=== PATIENT | female | born 1985 | race Two or more races ===

== ENCOUNTER 2017-07-16 09:26 | Emergency (ER) | payer OTHER ==
[~2017-07-16] VITALS: Ht 160 cm; Wt 115.7 kg
--- OUTSIDE RECORDS SUMMARY | 2017-07-16 09:29 | XMS REPORT ---
Author Author [facility] Address Unknown Phone Unavailable Care Team Providers Care Powder Coater Name Role Phone CAILIN MATTHEW Unavailable Unavailable Problems This patient has no known problems. Allergies, Adverse Reactions, Alerts This patient has no known allergies or adverse reactions. Medications This patient has no known medications. Results Test Description Test Time Test Comments Text Results Atomic Results Result Comments CT ABDOMEN/PELVIS [place] [address] Patient Name: SCHUYLER WERNER MR #: [id number] : 1985 Age/Sex: 31/F Req #: [id number] Adm Physician: Ordered by: MATTHEW SIMEON DO Report #: [id number] Location: CT Room/Bed: Procedure: [id number] CT/CT ABDOMEN/PELVIS W Exam Date: 12/31/16 Exam Time: 1905 REPORT STATUS: Signed EXAMINATION: CT of the abdomen and pelvis with contrast. TECHNIQUE: Helical CT images of the abdomen and pelvis were performed from the lung bases to the lesser trochanters after the intravenous administration of 100 cc of Isovue 300 and the oral administration of none. Coronal and sagittal reformatted images were obtained. COMPARISON: None. CLINICAL HISTORY:Abdominal pain DISCUSSION: ABDOMEN/PELVIS: LOWER THORAX:Unremarkable. HEPATOBILIARY: No focal hepatic lesions. No intra-or extrahepatic biliary ductal dilation. The gallbladder is normal. SPLEEN: No splenomegaly. PANCREAS: No focal masses or ductal dilatation. ADRENALS: No adrenal nodules. KIDNEYS/URETERS: No soft tissue mass. No hydronephrosis. PELVIC ORGANS/BLADDER: The bladder is normal. PERITONEUM/RETROPERITONEUM : No free air or fluid. LYMPH NODES: No intra-abdominal, retroperitoneal, pelvic or inguinal lymphadenopathy. VESSELS: Unremarkable. GI TRACT : No distention or wall thickening. BONES AND SOFT TISSUE: No bony destructive lesions. Soft tissue stranding in the left lower quadrant abdominal fat. IMPRESSION: Edema/cellulitis within the left lower quadrant abdominal fat. No abscess. Signed by: Dr. Gael Cloud M.D. on 12/31/2016 7:41 PM Dictated By: GAEL CLOUD MD 40 Transcribed By: DA on 1940 COPY TO: MATTHEW SIMEON DO
--- NOTE | 2017-07-16 10:17 | Diagnostic Imaging Report ---
Exam: Head CT without contrast History: Right-sided facial numbness, rule out bleeding mass, etc. Comparison studies: None Technique: Axial images were obtained from the skull base to the vertex. Coronal and sagittal images reconstructed from the axial data. Intravenous contrast: None Findings: Scalp: No abnormalities. Bones: No fractures, blastic or lytic lesions. Brain sulci: Appropriate for age. Ventricles: Normal in size and configuration. No hydrocephalus. Extra-axial spaces: Incidental scattered dural ossifications without significant mass affect. Largest ossification along the left paramedian falx measures up to 2.7 cm. No mass or fluid collection. Parenchyma: No abnormal densities. No masses, acute hemorrhage, acute or chronic vascular insults. Sellar/suprasellar region: No abnormalities. Craniocervical junction: Patent foramen magnum. No Chiari one malformation. IMPRESSION: 1. No acute abnormalities. 2. Specifically, no mass, acute hemorrhage or acute cortical vascular insults. Signed by: Dr. Charly Velasquez M.D. on 07/16/2017 10:14 AM
[2017-07-16 11:06] VITALS: BP 125/92
== END 2017-07-16 11:16 | disposition home or self-care (01) ==
LOC: ER 09:26
DX: G51.0 Bell's palsy (principal)
CPT/HCPCS: 70450; 99283

== ENCOUNTER 2019-09-27 21:26 | Emergency (ER) | payer OTHER ==
[~2019-09-27] VITALS: Ht 160 cm; Wt 115.7 kg
[2019-09-27 22:28] LABS: BASOPHILS % 0.3 % (0.0-1.0); EOSINOPHILS # (AUTO) 0.2 (0.0-0.4); EOSINOPHILS % 1.7 % (0.0-6.0); HEMATOCRIT 40.3 % (34.2-44.1); HEMOGLOBIN 12.3 g/dL (12.0-16.0); LYMPHOCYTES # (AUTO) 2.7 (1.0-3.2); LYMPHOCYTES % 22.6 % (18.0-39.1); MEAN CORPUSCULAR HEMOGLOBIN 24.4 pg (28-32); MEAN CORPUSCULAR HGB CONC 30.5 g/dL (31-35); MONOCYTES # (AUTO) 0.7 (0.2-0.8); MONOCYTES % 5.6 % (4.4-11.3); NEUTROPHILS # (AUTO) 8.2 (2.1-6.9); NEUTROPHILS % 69.4 % (38.7-80.0); PLATELET COUNT 369 x10e3/uL (140-360); RED BLOOD COUNT 5.04 x10e6/uL (3.6-5.1); RED CELL DISTRIBUTION WIDTH 15.8 % (11.7-14.4)
[2019-09-27 22:48] LABS: ALANINE AMINOTRANSFERASE 15 IU/L (0-55); ALBUMIN 4.2 g/dL (3.5-5.0); ALBUMIN/GLOBULIN RATIO 0.9 (0.8-2.0); ALKALINE PHOSPHATASE 93 IU/L (40-150); ANION GAP 14.9 mmol/L (8-16); BLOOD UREA NITROGEN 14 mg/dL (7-26); BUN/CREATININE RATIO 17 (6-25); CARBON DIOXIDE 32 mmol/L (22-29); CHLORIDE 95 mmol/L (98-107); CREATINE KINASE 170 IU/L (29-168); CREATININE, SERUM 0.84 mg/dL (0.57-1.11); EST GLOMERULAR FILTRATION RATE > 60 ML/MIN (60-); GLUCOSE 88 mg/dL (74-118); POTASSIUM 3.9 mmol/L (3.5-5.1); SODIUM 138 mmol/L (136-145)
--- NOTE | 2019-09-27 23:13 | Diagnostic Imaging Report ---
EXAMINATION: Head CT without contrast. HISTORY:Right-sided weakness. COMPARISON:CT head from 07/16/2017. TECHNIQUE: Multidetector axial images were obtained from the foramen magnum to the vertex without contrast. The images were reconstructed using brain and bone algorithms. Thin section brain images were reformatted into coronal and sagittal planes. Dose modulation, iterative reconstruction, and/or weight based adjustment of the mA/kV was utilized to reduce the radiation dose to as low as reasonably achievable. Intravenous contrast: None IMAGE QUALITY: Acceptable. FINDINGS: Skull/scalp: No lytic or blastic. lesions. No surgical changes. Parenchyma: No abnormal density. No acute hemorrhage, mass or acute major vascular territorial infarct. Arteries: No density suggestive of thrombosis. Dural sinuses: No abnormal density suggestive of thrombosis. Ventricles: No hydrocephalus or displacement. Extra-axial spaces: Unchanged dural based calcification/ossification, the largest along the left paramedian falx measures up to 2.9 cm. No mass or fluid collection. Brain volume: Normal for age. Craniocervical junction: No mass, Chiari malformation, or basilar invagination. Sella: No mass. Paranasal/mastoid sinuses: Imaged portions unremarkable. IMPRESSION: No acute intracranial abnormality. No change since CT head from 07/16/2017. Signed by: Dr. Helen Bustillos M.D. on 09/27/2019 11:09 PM
[2019-09-28] MEDS ORDERED: ACETAMINOPHEN 325 MG TAB PO ONE
--- NOTE | 2019-09-28 00:12 | Emergency Department Note ---
History of Present Illnes History of Present Illness Chief Complaint: Neurological History of Present Illness This is a 34 year old Other female PRESENTS WITH C/O RIGHT SIDE HEADACHE RADIATING TO RIGHT NECK AND THEN BECAME WEAK ALL OVER, HAS H/O MIGRAINE HEADACHES, NO SYMPTOMS AT THIS TIME EXCEPT FOR MILD HEADACHE. Arrival Mode: Car Onset (how long ago): hour(s) (1) Location: RIGHT HEAD Quality: HEADACHE Radiation: Reports neck Severity: moderate Onset quality: sudden Duration (how long): hour(s) (1) Timing of current episode: constant Progression: partially resolved Context: Denies recent illness, Denies recent surgery Relieving factors: none Exacerbating factors: none Associated symptoms: Reports denies other symptoms Past Medical/Family History Physician Review I have reviewed the patient's past medical and family history. Any updates have been documented here. Past Medical History Recent Fever: No Clinical Suspicion of Infectio: No New/Unexplained Change in Ment: No Past Medical History: None Other Medical History: BELLS PALSY, MIGRAINE HEADACHES Past Surgical History: None Social History Smoking Cessation: Never Smoker Alcohol Use: None Any Illegal Drug Use: No Other Last Tetanus: unknown Review of Systems Review of Systems Constitutional: Reports no symptoms EENTM: Reports no symptoms Cardiovascular: Reports no symptoms Respiratory: Reports no symptoms Gastrointestinal: Reports no symptoms Genitourinary: Reports no symptoms Musculoskeletal: Reports no symptoms Integumentary: Reports no symptoms Neurological: Reports as per HPI Psychological: Reports no symptoms Endocrine: Reports no symptoms Hematological/Lymphatic: Reports no symptoms Physical Exam Related Data Allergies: Coded Allergies: No Known Allergies (Unverified , 07/16/17) Triage Vital Signs Vital Signs Date Time Temp Pulse Resp B/P (MAP) Pulse Ox O2 Delivery O2 Flow Rate FiO2 09/27/19 21:53 98.4 72 18 147/98 99 Vital signs reviewed: Yes Physical Exam CONSTITUTIONAL Constitutional: Present well-developed, Present well-nourished HENT HENT: Present normocephalic, Present atraumatic, Present oropharynx clear/moist, Present nose normal HENT L/R: Present left ext ear normal, Present right ext ear normal EYES Eyes: Reports PERRL, Reports conjunctivae normal NECK Neck: Present ROM normal PULMONARY Pulmonary: Present effort normal, Present breath sounds normal CARDIOVASCULAR Cardiovascular: Present regular rhythm, Present heart sounds normal, Present capillary refill normal, Present normal rate GASTROINTESTINAL Abdominal: Present soft, Present nontender, Present bowel sounds normal GENITOURINARY Genitourinary: Present exam deferred SKIN Skin: Present warm, Present dry MUSCULOSKELETAL Musculoskeletal: Present ROM normal NEUROLOGICAL Neurological: Present alert, Present oriented x 3, Present no gross motor or sensory deficits, Present other (NEURO EXAM NON FOCAL) PSYCHOLOGICAL Psychological: Present mood/affect normal, Present judgement normal Results Laboratory Result Diagram: 09/27/19220909/27/192209 Laboratory Laboratory Tests Test 09/27/19 22:10 White Blood Count 11.84 x10e3/uL (4.8-10.8) Red Blood Count 5.04 x10e6/uL (3.6-5.1) Hemoglobin 12.3 g/dL (12.0-16.0) Hematocrit 40.3 % (34.2-44.1) Mean Corpuscular Volume 80.0 fL (81-99) Mean Corpuscular Hemoglobin 24.4 pg (28-32) Mean Corpuscular Hemoglobin Concent 30.5 g/dL (31-35) Red Cell Distribution Width 15.8 % (11.7-14.4) Platelet Count 369 x10e3/uL (140-360) Neutrophils (%) (Auto) 69.4 % (38.7-80.0) Lymphocytes (%) (Auto) 22.6 % (18.0-39.1) Monocytes (%) (Auto) 5.6 % (4.4-11.3) Eosinophils (%) (Auto) 1.7 % (0.0-6.0) Basophils (%) (Auto) 0.3 % (0.0-1.0) Neutrophils # (Auto) 8.2 (2.1-6.9) Lymphocytes # (Auto) 2.7 (1.0-3.2) Monocytes # (Auto) 0.7 (0.2-0.8) Eosinophils # (Auto) 0.2 (0.0-0.4) Basophils # (Auto) 0.0 (0.0-0.1) Absolute Immature Granulocyte (auto 0.05 x10e3/uL (0-0.1) Sodium Level 138 mmol/L (136-145) Potassium Level 3.9 mmol/L (3.5-5.1) Chloride Level 95 mmol/L (98-107) Carbon Dioxide Level 32 mmol/L (22-29) Anion Gap 14.9 mmol/L (8-16) Blood Urea Nitrogen 14 mg/dL (7-26) Creatinine 0.84 mg/dL (0.57-1.11) Estimat Glomerular Filtration Rate > 60 ML/MIN (60-) BUN/Creatinine Ratio 17 (6-25) Glucose Level 88 mg/dL (74-118) Calcium Level 11.0 mg/dL (8.4-10.2) Total Bilirubin 0.5 mg/dL (0.2-1.2) Aspartate Amino Transf (AST/SGOT) 18 IU/L (5-34) Alanine Aminotransferase (ALT/SGPT) 15 IU/L (0-55) Alkaline Phosphatase 93 IU/L (40-150) Creatine Kinase 170 IU/L (29-168) Creatine Kinase MB 1.10 ng/mL (0-5.0) Troponin I 0.124 ng/mL (0-0.300) Total Protein 9.1 g/dL (6.5-8.1) Albumin 4.2 g/dL (3.5-5.0) Globulin 4.9 g/dL (2.3-3.5) Albumin/Globulin Ratio 0.9 (0.8-2.0) Lab results reviewed: Yes Imaging Imaging results reviewed: Yes Impressions rocedure: [id number] CT/CT BRAIN WO Exam Date: Exam Time: REPORT STATUS: Signed EXAMINATION: Head CT without contrast. HISTORY:Right-sided weakness. COMPARISON:CT head from 07/16/2017. TECHNIQUE: Multidetector axial images were obtained from the foramen magnum to the vertex without contrast. The images were reconstructed using brain and bone algorithms. Thin section brain images were reformatted into coronal and sagittal planes. Dose modulation, iterative reconstruction, and/or weight based adjustment of the mA/kV was utilized to reduce the radiation dose to as low as reasonably achievable. Intravenous contrast: None IMAGE QUALITY: Acceptable. FINDINGS: Skull/scalp: No lytic or blastic. lesions. No surgical changes. Parenchyma: No abnormal density. No acute hemorrhage, mass or acute major vascular territorial infarct. Arteries: No density suggestive of thrombosis. Dural sinuses: No abnormal density suggestive of thrombosis. Ventricles: No hydrocephalus or displacement. Extra-axial spaces: Unchanged dural based calcification/ossification, the largest along the left paramedian falx measures up to 2.9 cm. No mass or fluid collection. Brain volume: Normal for age. Craniocervical junction: No mass, Chiari malformation, or basilar invagination. Sella: No mass. Paranasal/mastoid sinuses: Imaged portions unremarkable. IMPRESSION: No acute intracranial abnormality. No change since CT head from 07/16/2017. Signed by: Dr. Helen Ash M.D. on 09/27/2019 11:09 PM Dictated By: HELEN ASH MD 08 Transcribed By: DA on 09/27/192308 COPY TO: JEN LUKE MD~ Procedures 12 Lead ECG Interpretation ECG Interpretation : ECG: ECG 1 Change Management Director: Interpreted by ED physician Date: Sep 28, 2019 Time: 22:02 Rhythm: sinus rhythm Rate: normal BPM: 60 QRS axis: normal ST segments normal: Yes T waves normal: Yes Other findings: LVH Clinical Impression: non-specific ECG Assessment & Plan Medical Decision Making MDM PT WITH SUDDEN HEADACHE RADIATING DOWN RIGHT NECK AND WEAKNESS ALL OVER CBC, CMP, EKG, CARDIAC ENZYMES, CT BRAIN , ORDERED TO EVAL FOR ELECTROLYTE ABNORMALITY, MYOCARDIAL INFARCTION, INTRACRANIAL ABNORMALITY, Assessment & Plan Final Impression: (1) Head ache (2) Migraine Depart Disposition: HOME, SELF-CARE Last Vital Signs Date Time Temp Pulse Resp B/P (MAP) Pulse Ox O2 Delivery O2 Flow Rate FiO2 09/27/19 21:53 98.4 72 18 147/98 99 Medications in the ED Acetaminophen 650 mg ONCE ONCE PO Last administered on 09/27/19at 23:58; Admin Dose 650 MG; Start 09/28/19 at 00:00; Stop 09/28/19 at 00:02; Status DC JEN LUKE MD Sep 28, 2019 00:12
== END 2019-09-28 00:36 | disposition home or self-care (01) ==
LOC: ER 21:26
DX: G43.909 Migraine, unspecified, not intractable, without status migrainosus (principal)
CPT/HCPCS: 36415; 70450; 80053; 82550; 82553; 84484; 85025; 93005; 99283

== ENCOUNTER 2020-06-20 02:22 | Emergency (ER) | payer OTHER ==
[~2020-06-20] VITALS: Ht 160 cm; Wt 115.7 kg
[2020-06-20 02:52] LABS: BASOPHILS # (AUTO) 0.1 (0.0-0.1); BASOPHILS % 0.4 % (0.0-1.0); EOSINOPHILS # (AUTO) 0.5 (0.0-0.4); EOSINOPHILS % 4.6 % (0.0-6.0); HEMATOCRIT 35.7 % (34.2-44.1); HEMOGLOBIN 11.4 g/dL (12.0-16.0); LYMPHOCYTES # (AUTO) 3.2 (1.0-3.2); LYMPHOCYTES % 27.8 % (18.0-39.1); MEAN CORPUSCULAR HEMOGLOBIN 25.4 pg (28-32); MEAN CORPUSCULAR HGB CONC 31.9 g/dL (31-35); MEAN CORPUSCULAR VOLUME 79.7 fL (81-99); MONOCYTES # (AUTO) 0.6 (0.2-0.8); MONOCYTES % 4.8 % (4.4-11.3); NEUTROPHILS # (AUTO) 7.2 (2.1-6.9); NEUTROPHILS % 62.1 % (38.7-80.0); PLATELET COUNT 322 x10e3/uL (140-360); RED BLOOD COUNT 4.48 x10e6/uL (3.6-5.1); RED CELL DISTRIBUTION WIDTH 15.9 % (11.7-14.4)
[2020-06-20 03:53] LABS: CLARITY,URINE CLEAR (CLEAR); COLOR,URINE YELLOW (YELLOW); KETONES,URINE NEGATIVE (NEGATIVE); LEUKOCYTE ESTERASE ,URINE NEGATIVE (NEGATIVE); NITRITE,URINE NEGATIVE (NEGATIVE); PROTEIN,URINE DIPSTICK NEGATIVE (NEGATIVE); URINE UROBILINOGEN 0.2 mg/dL (0.2 - 1)
[2020-06-20 03:59] LABS: BACTERIA,URINE FEW /HPF; EPITHELIAL CELLS,URINE MODERATE /LPF; WBC,URINE (MAN) 0-5 /HPF (0-5)
== END 2020-06-20 04:24 | disposition home or self-care (01) ==
LOC: ER 02:25
DX: O26.851 Spotting complicating pregnancy, first trimester (principal); O20.0 Threatened abortion
CPT/HCPCS: 36415; 76817; 81001; 84702; 85025; 99284